=== PATIENT | male | born 1975 | race Caucasian/White ===

== ENCOUNTER 2021-10-11 18:04 | Emergency (ER) | payer OTHER ==
[~2021-10-11] VITALS: Ht 182.9 cm; Wt 98.9 kg
--- NOTE | 2021-10-11 18:13 | NUR ---
Pending MD evaluation. Patient alert and oriented x4, complaints of laceration on right middle finger with no active bleeding noted. Vitals stable.
--- NOTE | 2021-10-11 18:30 | NUR ---
MD at bedside, medical screening in process.
[2021-10-11] MEDS ORDERED: LIDOCAINE HCL 2% 20 ML VIAL TP ONE (19:00)
[2021-10-11] MEDS ORDERED: BACITRACIN ZINC OINT 15 GM TUBE TOP ONE (19:30)
[2021-10-11] MEDS ORDERED: OXYCODONE/APAP 5-325 MG TABLET PO ONE (19:30)
[2021-10-11] MEDS ORDERED: HYDR-3980 PO (19:31)
[2021-10-11] MEDS ORDERED: OXYCODONE/APAP 5-325 MG TABLET ONE (19:43)
[2021-10-11] MEDS ORDERED: BACITRACIN ZINC OINT 15 GM TUBE ONE (19:44)
--- NOTE | 2021-10-11 20:13 | NUR ---
Patient discharged to home in stable condition. Written and verbal after care instructions given. Patient verbalizes understanding of instructions. Stressed follow up or return to ER for worsening s/s. Steady gait, no SOB or labored breathing. A/O x4, denies any pain/discomfort upon discharge. Picked up by family.
[2021-10-11 20:14] VITALS: BP 122/80
== END 2021-10-11 20:14 | disposition home or self-care (01) ==
LOC: ER 18:07
DX: S61.212A Laceration without foreign body of right middle finger without damage to nail, initial encounter (principal); W26.9XXA Contact with unspecified sharp object(s), initial encounter; Y92.89 Other specified places as the place of occurrence of the external cause
CPT/HCPCS: A4663; J3490